=== PATIENT | male | born 1960 | race Caucasian/White ===

== ENCOUNTER 2025-05-12 11:24 | Inpatient (IN) | payer OTHER ==
[~2025-05-12] VITALS: Ht 175.3 cm; Wt 94.2 kg
[2025-05-12] MEDS ORDERED: NS 1,000 ML IV SCH (11:45)
[2025-05-12 12:39] LABS: BASOPHILS ABSOLUTE AUTO 0.06 K/mm3 (0.00-0.23); BASOPHILS PERCENT AUTO 0 % (0-2); EOSINOPHILS ABSOLUTE AUTO 0.35 K/mm3 (0.00-0.68); EOSINOPHILS PERCENT AUTO 2 % (0-6); Hematocrit 42.9 % (37.0-53.0); Hemoglobin 14.0 g/dL (13.5-17.5); IMMATURE GRAN ABSOLUTE AUTO 0.15 K/mm3 (0.00-0.10); IMMATURE GRAN PERCENT AUTO 1 % (0-1); LYMPHOCYTES ABSOLUTE AUTO 1.76 K/mm3 (0.84-5.20); LYMPHOCYTES PERCENT AUTO 9 % (21-46); MONOCYTES ABSOLUTE AUTO 1.70 K/mm3 (0.16-1.47); MONOCYTES PERCENT AUTO 9 % (4-13); Mean Corpuscular HGB Conc 32.6 g/dL (31.5-36.5); Mean Corpuscular Volume 82 fL (80-100); NEUTROPHILS ABSOLUTE AUTO 14.67 K/mm3 (1.96-9.15); NEUTROPHILS PERCENT AUTO 79 % (41-73); NRBC ABSOLUTE 0.00 K/mm3 (0.00-0.02); NRBC Auto 0.0 /100 WBC (0.0-0.2); Platelet Count 521 K/mm3 (150-400); RDW Coefficient Variation 14.0 % (11.7-14.2); RDW Standard Deviation 41.6 fL (35.1-46.3)
[2025-05-12 12:56] LABS: Alanine Aminotransfer (ALT/SGP 66.0 U/L (12-78); Albumin, Blood 2.7 g/dL (3.4-5.0); Albumin/Globulin Ratio 0.6 (0.8-1.8); Anion Gap 9.0 mmol/L (3-11); Aspartate Aminotrans (AST/SGOT 62.0 U/L (12-37); Bilirubin, Total 0.4 mg/dL (0.1-1.0); Blood Urea Nitrogen 74.0 mg/dL (8-24); CO2, Blood 31.0 mmol/L (21-32); Calcium, Blood 8.8 mg/dL (8.5-10.1); Chloride, Blood 98.0 mmol/L (98-108); Creatinine, Blood 1.81 mg/dL (0.60-1.20); Globulin, Blood 4.9 g/dL (2.2-4.0); Glucose, Blood 85.0 mg/dL (70-99); Potassium, Blood 3.0 mmol/L (3.5-5.5); Sodium, Blood 135.0 mmol/L (136-145); Total Protein, Blood 7.6 g/dL (6.4-8.2)
[2025-05-12] MEDS ORDERED: HYDROmorphone HCl/Pf 1MG SYR IV ONE (14:00)
[2025-05-12] MEDS ORDERED: Lidocaine HCl 2% Jelly 120MG/6ML SYR (20MG PER ML) TOP ONE (15:00)
[2025-05-12] MEDS ORDERED: Vancomycin (Pharmacy Consult) IV PRN (15:10)
[2025-05-12] MEDS ORDERED: HYDROmorphone HCl/Pf 1MG SYR IV PRN (15:20)
[2025-05-12] MEDS ORDERED: FLU VACC TS2025-26(6MOS UP)/PF 45 MCG/0.5 ML SYRINGE IM SCH (15:20)
[2025-05-12] MEDS ORDERED: Ondansetron HCl 2 MG / ML 2ML Vial IV PRN (15:20)
[2025-05-12 15:33] LABS: Magnesium, Blood 2.6 mg/dL (1.6-2.4); Phosphorus, Blood 3.8 mg/dL (2.5-4.9)
[2025-05-12] MEDS ORDERED: Vancomycin (Pharmacy Consult) IV SCH (16:05)
[2025-05-12] MEDS ORDERED: Clindamycin 900mg in D5W 50ML 50 ML IV ONE (16:15)
[2025-05-12] MEDS ORDERED: Meropenem 2,000 MG in NS 250 ML IV SCH (17:00)
--- NOTE | 2025-05-12 17:00 | NUR ---
PT ADMITTED TO ROOM 359.
[2025-05-12 18:17] VITALS: BP 163/97
--- NOTE | 2025-05-12 19:51 | NUR ---
SHIFT SUMMARY PT ADMITTED THIS EVENING. PT IS A/OX4. BEDREST AT THIS TIME. WOUND TO R FOOT COVERED WITH MAGGOTS. MULTIPLE SCABS AND EXCORATION COVERING BLE'S, BUE'S, ABD, AND TIERRA AREA. SEE PICTURES IN CHART. LOCOMOTIVE CRANE OPERATOR CONSULT, UNABLE TO REACH AT THIS TIME. PT IS INCONT OF BLADDER R/T URGENCY. ATTENDS IN PLACE AND CHANGED NEEDED. PT ENCOURAGED TO USE URINAL. ON TELE RUNNING SINUS TACH IN THE 100'S. PT IS PLEASANT AND COOPERATIVE WITH CARE.
[2025-05-12] MEDS ORDERED: Sodium Hypochlorite 480 ML BTL (0.25%) TOP ONE (20:00)
[2025-05-12 20:07] VITALS: BP 168/83
[2025-05-12] MEDS ORDERED: NS 250 ML IV PRN (20:20)
[2025-05-12] MEDS ORDERED: Lactobacil 2-S.Thermo-Bifido 1 1 Cap PO SCH (21:00)
[2025-05-13] MEDS ORDERED: Clindamycin 900mg in D5W 50ML 50 ML IV SCH (02:00)
[2025-05-13 04:28] VITALS: BP 186/93
--- NOTE | 2025-05-13 05:27 | NUR ---
PROVIDER NOTIFIED OF PT'S BP OF 181/93. PT NOTED TO NOT TAKE ANY HOME MEDS FOR BLOOD PRESSURE AND NOT IN PAIN. NO ORDERS AT THIS TIME. AUTHOR TOLD TO CALL AGAIN IF SYSTOLIC BLOOD PRESSURE REACHES 190 AT NEXT VS CHECK.
--- NOTE | 2025-05-13 05:51 | NUR ---
SENIOR DATA ARCHITECT SUMMARY PT A&OX4, VSS, EXCEPT FOR HTN. PROVIDER NOTIFIED OF HTN, SEE NOTE FOR DETAILS. ABLE TO COMMUNICATE NEEDS EFFECTIVELY. ALTHOUGH PT IS ABLE TO ANSWER A&O QUESTIONS CORRECTLY, PT IS INTERMITTENTLY CONFUSED AND FORGETFUL. PULLED OUT IV AND WAS ASKING ABOUT WHERE "HORACIO" WAS. UNCLEAR WHO HORACIO IS. AT ONE POINT, PT HAD BACKPACK IN LAP WITH GOWN OFF SITTING IN BED. APPEARED LIKE HE WAS GETTING READY TO LEAVE. REDIRECTABLE. BED ALARM ON FOR SAFETY. PROVIDER NOTIFIED OF MAGGOTS ON R FOOT. AUTHOR INSTRUCTED BY PROVIDER TO MANUALLY SUCTION MAGGOTS OFF FOOT, CLEANSE WITH [employer], AND LEAVE PATHOLOGY LABORATORY AIDE AFTERWARDS. PT STATED GREAT IMPROVEMENT IN R FOOT COMFORT AFTER MAGGOT REMOVAL. OTHERWISE, PT HAS BEEN ASLEEP ON AND OFF THIS SHIFT. CHEST RISE/RESPIRATIONS NOTED. REMAINS ON TELE. SINUS TACH AT 103. REMAINS ON BED REST. RECEIVING CLINDAMYCIN AND MEROPENEM PER EMAR. BED RAILS UP X 2, BED IN LOWEST POSITION, BED WHEELS LOCKED, PERSONAL BELONGINGS AND CALL LIGHT WITHIN REACH FOR SAFETY.
[2025-05-13 05:56] LABS: BASOPHILS ABSOLUTE AUTO 0.03 K/mm3 (0.00-0.23); BASOPHILS PERCENT AUTO 0 % (0-2); EOSINOPHILS ABSOLUTE AUTO 0.23 K/mm3 (0.00-0.68); EOSINOPHILS PERCENT AUTO 1 % (0-6); Hematocrit 36.5 % (37.0-53.0); Hemoglobin 12.1 g/dL (13.5-17.5); IMMATURE GRAN ABSOLUTE AUTO 0.11 K/mm3 (0.00-0.10); IMMATURE GRAN PERCENT AUTO 1 % (0-1); LYMPHOCYTES ABSOLUTE AUTO 1.53 K/mm3 (0.84-5.20); LYMPHOCYTES PERCENT AUTO 9 % (21-46); MONOCYTES ABSOLUTE AUTO 1.82 K/mm3 (0.16-1.47); MONOCYTES PERCENT AUTO 11 % (4-13); Mean Corpuscular HGB Conc 33.2 g/dL (31.5-36.5); Mean Corpuscular Volume 82 fL (80-100); NEUTROPHILS ABSOLUTE AUTO 12.48 K/mm3 (1.96-9.15); NEUTROPHILS PERCENT AUTO 77 % (41-73); NRBC ABSOLUTE 0.00 K/mm3 (0.00-0.02); NRBC Auto 0.0 /100 WBC (0.0-0.2); Platelet Count 401 K/mm3 (150-400); RDW Coefficient Variation 14.2 % (11.7-14.2); RDW Standard Deviation 42.3 fL (35.1-46.3)
[2025-05-13 06:28] LABS: Anion Gap 8.0 mmol/L (3-11); Blood Urea Nitrogen 61.0 mg/dL (8-24); CO2, Blood 27.0 mmol/L (21-32); Calcium, Blood 8.2 mg/dL (8.5-10.1); Chloride, Blood 101.0 mmol/L (98-108); Creatinine, Blood 1.78 mg/dL (0.60-1.20); Glucose, Blood 151.0 mg/dL (70-99); Magnesium, Blood 2.1 mg/dL (1.6-2.4); Potassium, Blood 3.1 mmol/L (3.5-5.5); Sodium, Blood 133.0 mmol/L (136-145)
[2025-05-13] MEDS ORDERED: Insulin Human Lispro 100 Units/ML 3ML Syringe SC SCH (07:30)
[2025-05-13 07:59] VITALS: BP 188/88
[2025-05-13] MEDS ORDERED: Enoxaparin 30 MG/0.3 ML SYR SC SCH (09:00)
[2025-05-13] MEDS ORDERED: Enoxaparin 40 MG/0.4 ML SYR SC SCH (09:00)
[2025-05-13] MEDS ORDERED: Miconazole Nitrate 2% 85 GM PWD TOP SCH (09:00)
[2025-05-13] MEDS ORDERED: Meropenem 2,000 MG in NS 250 ML IV SCH (10:00)
[2025-05-13 14:15] VITALS: BP 151/74
--- NOTE | 2025-05-13 18:28 | NUR ---
SHIFT SUMMARY PATIENT ALERT AND ORIENTED X 4, MAKE NEEDS KNOWN. MEDICATION ADMINISTERED PER EMAR.TOLERATING PO. PATIENT PLEASANT AND COOPERATIVE DURING CARE. INCREASE ACTIVITY TOLERATED PER PROVIDER. CALLED PODIATRY CONSULT THIS MORNING. LE DUPLEX WAS DONE TODAY. BED LOCKED AND IN LOWEST POSITION. CALL LIGHT WITHIN REACH.
[2025-05-13 19:55] VITALS: BP 168/90
[2025-05-13] MEDS ORDERED: Arginine/Glutamine/Calcium Hmb 1 Packet PO SCH (21:00)
[2025-05-14] VITALS (8 sets, daily range): BP systolic 155–196; BP diastolic 74–106
--- NOTE | 2025-05-14 04:08 | NUR ---
SHIFT SUMMARY PT ALERT ORIENTED X 4 WITH CONFUSION ABLE TO VERBALIZE NEEDS REMAINS ON BEDREST. INC OF URINE THIS SHIFT. REMAINS WITH EXCORIATION TO PERINEUM. ZINC AND DESENEX WERE APPLIED TO AREAS. KEPT CLEAN DRY AND REPOSITIONED Q2HR. C/O BACK PAIN MEDICATED WITH OXYAND TYLENOL WITH GOOD PAIN RELIEF. REMAINS ON VANCO AND MEROPENEM FOR SEVERE SEPSIS TO HIS INFECTED DIABETIC RT FOOT ULCER. AREA REMAINS WITH DRESSING THAT IS CHANGED QDAY. HIS BP IS ELEVATED IN THE 160'S AND 180'S. FS DONE AC AND HS WAS 183. REMAINS ON TELEMETRY AT [facility] AT 94. RESTING IN BED AT THIS TIME WITH CALL LIGHT IN REACH
[2025-05-14 04:30] LABS: BASOPHILS ABSOLUTE AUTO 0.07 K/mm3 (0.00-0.23); BASOPHILS PERCENT AUTO 0 % (0-2); EOSINOPHILS ABSOLUTE AUTO 0.32 K/mm3 (0.00-0.68); EOSINOPHILS PERCENT AUTO 2 % (0-6); Hematocrit 35.6 % (37.0-53.0); Hemoglobin 11.5 g/dL (13.5-17.5); IMMATURE GRAN ABSOLUTE AUTO 0.14 K/mm3 (0.00-0.10); IMMATURE GRAN PERCENT AUTO 1 % (0-1); LYMPHOCYTES ABSOLUTE AUTO 2.07 K/mm3 (0.84-5.20); LYMPHOCYTES PERCENT AUTO 12 % (21-46); MONOCYTES ABSOLUTE AUTO 1.92 K/mm3 (0.16-1.47); MONOCYTES PERCENT AUTO 11 % (4-13); Mean Corpuscular HGB Conc 32.3 g/dL (31.5-36.5); Mean Corpuscular Volume 82 fL (80-100); NEUTROPHILS ABSOLUTE AUTO 12.96 K/mm3 (1.96-9.15); NEUTROPHILS PERCENT AUTO 74 % (41-73); NRBC ABSOLUTE 0.00 K/mm3 (0.00-0.02); NRBC Auto 0.0 /100 WBC (0.0-0.2); Platelet Count 355 K/mm3 (150-400); RDW Coefficient Variation 14.3 % (11.7-14.2); RDW Standard Deviation 42.7 fL (35.1-46.3)
[2025-05-14 04:46] LABS: Albumin, Blood 1.9 g/dL (3.4-5.0); Anion Gap 12 mmol/L (3-11); Blood Urea Nitrogen 50 mg/dL (8-24); CO2, Blood 25 mmol/L (21-32); Calcium, Blood 8.3 mg/dL (8.5-10.1); Chloride, Blood 104 mmol/L (98-108); Creatinine, Blood 2.00 mg/dL (0.60-1.20); Glucose, Blood 123 mg/dL (70-99); Phosphorus, Blood 2.8 mg/dL (2.5-4.9); Potassium, Blood 3.8 mmol/L (3.5-5.5); Sodium, Blood 137 mmol/L (136-145)
[2025-05-14] MEDS ORDERED: Meropenem 2,000 MG in NS 250 ML IV SCH (09:00)
[2025-05-14 11:27] LABS: Vancomycin, Trough 15.4 ug/mL (5.0-10.0)
[2025-05-14] MEDS ORDERED: NS 1,000 ML IV SCH (14:50)
--- NOTE | 2025-05-14 15:24 | NUR ---
SUMMARY- PT A/O X3-4, USES CALL LIGHT.MILD CONFUSION AT TIMES; PULLED OFF TELE LEADS MULT TIMES THIS SHIFT. FEEDS SELF MEALS WITH SET UP. TOLERATING FOOD AND FLUIDS. PT IS CONTINENT ON OCCASION AND MOSTLY INCONT RELATED TO URGENCY. BLE HAVE WOUNDS, RLE MOIST WOUNDS DIALY DRESSING CHANGED 1400- SCD'S IN USE. BLOOD SUGARS AC/HS, COVERED WITH SSI. ATTEMPTED TO GET PT OOB TO CHAIR. PT WAS UNABLE TO STAND WITH 2 PERSON ASSIST/GAIT BELT. SAT AT EDGE OF BED FOR 5 MIN, BALANCED SELF HALF THE TIME. PT/OT ORDERED, PT DECLINED TO WORK WITH OT SAID FOR THEM TO COME BACK TOMORROW. PT TURNED ROUTINELY IN BED. WOUNDS ON PENIS AND SCROTUM WITH YELLOW ESCHAR, VERY PAINFUL. NEW ORDER FOR ABX OINT TO BE PLACED TO AREA WITH EACH ATTENDS CHANGE. ZINC CREAM TO OTHER EXCORIATION,AND MICONOZOLE TO RED INTACT SKIN. PT HAS HX BLE NEUROPATHY BUT STATES LEGS VERY PAINFUL TO TOUCH. MEDICATED WITH DILAUDID 1MG BEFORE DRESSING CHANGE AND OXYCODONE 5MG X2 THIS SHIFT. STATES PAIN MED GIVES HIM ADQ PAIN CONTROL.
[2025-05-14] MEDS ORDERED: Insulin Glargine 100 Unit/ML 3 ML SYR SC SCH (21:00)
[2025-05-15 00:54] VITALS: BP 192/99
[2025-05-15 03:38] VITALS: BP 187/87
--- NOTE | 2025-05-15 04:39 | NUR ---
SHIFT SUMMARY PT ALERT ORIENTED WITH SOME CONFUSION. HE HAS BEEN VERY RESTLESS THIS SHIFT CONTINUING TO REMOVE HIS TELEMETRY SEVERAL TIMES AND TAKING OUT HIS IV. HE CONTINUES TO BE INCONTINENT AND REQUIRES TO BE CHANGED SEVERAL TIMES DUE TO HIS INCONTINENCE. REMAINS ON MEROPENEM q12HR AND VANCO QDAY. REMAINS ON CONTACT ISOLATION R/T MRSA. HIS RT FOOT REMAINS WITH DRESSINGS THAT ARE CDI. HE HAD A TEMP OF 99.9 AND TYLENOL WAS GIVEN. HE BP REMAINS HIGH AT 188/83 AND 192/99. REMAINS ON BP MEDS ORDERED. HIS LT ARM REMAINS SWOLLEN. HE STATED THAT ITS BEEN LIKE THIS FOR A LONG TIME R/T BURSITIS. MD TO LOOK AT AREA TODAY. REMAINS ON TELEMETRY AT AT 115. HE HAS BLE ULCERATIONS, ABRASION TO NOSE, AND EXCORIATIONS TO PERINEUM. PT RESTING IN BED AT THIS TIME WITH CALL LIGHT IN REACH
[2025-05-15 04:51] LABS: Hematocrit 34.9 % (37.0-53.0); Hemoglobin 11.6 g/dL (13.5-17.5); Mean Corpuscular HGB Conc 33.2 g/dL (31.5-36.5); Mean Corpuscular Volume 82 fL (80-100); NRBC ABSOLUTE 0.00 K/mm3 (0.00-0.02); NRBC Auto 0.0 /100 WBC (0.0-0.2); Platelet Count 328 K/mm3 (150-400); RDW Coefficient Variation 14.5 % (11.7-14.2); RDW Standard Deviation 43.0 fL (35.1-46.3)
[2025-05-15 05:14] LABS: Anion Gap 10.0 mmol/L (3-11); Blood Urea Nitrogen 42.0 mg/dL (8-24); CO2, Blood 26.0 mmol/L (21-32); Calcium, Blood 8.4 mg/dL (8.5-10.1); Chloride, Blood 105.0 mmol/L (98-108); Creatinine, Blood 1.7 mg/dL (0.60-1.20); Glucose, Blood 122.0 mg/dL (70-99); Potassium, Blood 3.9 mmol/L (3.5-5.5); Sodium, Blood 137.0 mmol/L (136-145)
[2025-05-15 08:05] VITALS: BP 158/94
[2025-05-15] MEDS ORDERED: Meropenem 2,000 MG in NS 250 ML IV SCH (08:30)
[2025-05-15 14:42] VITALS: BP 162/97
--- NOTE | 2025-05-15 18:38 | NUR ---
PT A/OX4. PLEASANT AND COOPERATIVE WITH CARE TODAY. PT ON BEDREST, CONTINUES TO BE INCONTINENT. DOES NOT USE CALL LIGHT APPROPRIATELY. PT HAS BEEN SLEEPING MOST OF SHIFT, EASILY WOKEN WITH VERBAL STIMULI FOR CARE TASKS. PLAN IS TO DC TO SNF. CONT IV VANCO AND MEROPENEM. NO ACUTE NEEDS AT THIS TIME.
[2025-05-15 19:38] VITALS: BP 154/89
[2025-05-16] VITALS (7 sets, daily range): BP systolic 149–198; BP diastolic 75–99
--- NOTE | 2025-05-16 04:29 | NUR ---
SHIFT SUMMARY PT ALERT ORIENTED WITH CONFUSION. ABLE TO VERBALIZE NEEDS BUT REMAINS VERY RESTLESS AND PULLS AT HIS CLOTHES AND HIS IV. REMAINS ON VANCO AND MERROPENUM ORDERED FOR INFECTION TO RT FOOT. I REDID THE DRESSING ON HIS RT FOOT LAST NIGHT. REMAINS ON CONTACT ISOLATION FOR MRSA TO WOUNDS. HES WBAT TO HIS LOWER EXTREMITIES BUT REMAINS VERY WEAK AND CONTINUES ON PT BUT REFUSES TO PARTICIPATE. HE HAS ABRASION TO HIS NOSE AND EXCORIATION TO HIS GROIN AND COCCYX. C/O PAIN MEDICATED WITH TYLENOL WITH GOOD RELIEF. FS DONE AC AND HS WAS 115. RESTING IN BED AT THIS TIME WITH CALL LIGHT IN REACH AND BED ALARM ON.
[2025-05-16 09:37] LABS: BASOPHILS ABSOLUTE AUTO 0.05 K/mm3 (0.00-0.23); BASOPHILS PERCENT AUTO 0 % (0-2); EOSINOPHILS ABSOLUTE AUTO 0.34 K/mm3 (0.00-0.68); EOSINOPHILS PERCENT AUTO 2 % (0-6); Hematocrit 33.2 % (37.0-53.0); Hemoglobin 10.8 g/dL (13.5-17.5); IMMATURE GRAN ABSOLUTE AUTO 0.14 K/mm3 (0.00-0.10); IMMATURE GRAN PERCENT AUTO 1 % (0-1); LYMPHOCYTES ABSOLUTE AUTO 0.91 K/mm3 (0.84-5.20); LYMPHOCYTES PERCENT AUTO 6 % (21-46); MONOCYTES ABSOLUTE AUTO 1.69 K/mm3 (0.16-1.47); MONOCYTES PERCENT AUTO 12 % (4-13); Mean Corpuscular HGB Conc 32.5 g/dL (31.5-36.5); Mean Corpuscular Volume 82 fL (80-100); NEUTROPHILS ABSOLUTE AUTO 11.51 K/mm3 (1.96-9.15); NEUTROPHILS PERCENT AUTO 79 % (41-73); NRBC ABSOLUTE 0.00 K/mm3 (0.00-0.02); NRBC Auto 0.0 /100 WBC (0.0-0.2); Platelet Count 379 K/mm3 (150-400); RDW Coefficient Variation 14.1 % (11.7-14.2); RDW Standard Deviation 41.8 fL (35.1-46.3)
[2025-05-16 09:51] LABS: Anion Gap 8.0 mmol/L (3-11); Blood Urea Nitrogen 47.0 mg/dL (8-24); CO2, Blood 27.0 mmol/L (21-32); Calcium, Blood 8.4 mg/dL (8.5-10.1); Chloride, Blood 102.0 mmol/L (98-108); Creatinine, Blood 1.54 mg/dL (0.60-1.20); Glucose, Blood 193.0 mg/dL (70-99); Potassium, Blood 4.3 mmol/L (3.5-5.5); Sodium, Blood 133.0 mmol/L (136-145)
--- NOTE | 2025-05-16 19:09 | NUR ---
SHIFT SUMMARY PT IS A/OX4. UP TO CHAIR WITH 1 PERSON ASSIST WITH FWW. NO ACUTE CHANGES THROUGHOUT THIS SHIFT. PT IS INCONT OF BLADDER R/T URGENCY. ATTENDS IN PLACE, PT ENCOURAGE TO USE URINAL. CONTINUING IV ANTIBIOTICS. PT IS COOPERATIVE WITH CARE.
[2025-05-17 04:29] VITALS: BP 176/82
[2025-05-17 07:42] VITALS: BP 199/100
[2025-05-17 11:40] LABS: Creatinine, Blood 1.55 mg/dL (0.60-1.20); Vancomycin, Trough 13.6 ug/mL (5.0-10.0)
[2025-05-17 12:07] LABS: Stool Occult Blood Guaiac 1 Pos (Neg)
--- NOTE | 2025-05-17 15:58 | NUR ---
SHIFT SUMMARY NO ACUTE CHANGES, A/Ox3, ABLE TO MAKE NEEDS KNOWN AND USES CALL SYSTEM APPROPRIATELY. PT REFUSED OT AND TO GET OOB TODAY. SLEEPING MAJORITY OF SHIFT BESDIES MEAL TIMES AND PERSONAL CARE. GOOD APPETITE. CBG AC/HS AND INSULIN PER SLIDING SCALE. ABX ADMINISTERED PER ORDERS. WOUND DRESSINGS REMAIN C/D/I. MULTIPLE LOOSE BLACK BM - PROVIDER AWARE AND LAB RESULTS PENDING. PT COOPERATIVE WITH CARE AND APPRECIATIVE OF STAFF. INCONTINENT OF B&B. PT CURRENTLY SLEEPING IN BED ON LEFT SIDE. BED IN LOWEST POSITION AND CALL LIGHT IN REACH.
[2025-05-17 17:00] VITALS: BP 148/69
[2025-05-17 18:56] LABS: Hematocrit 24.6 % (37.0-53.0); Hemoglobin 7.9 g/dL (13.5-17.5)
[2025-05-17] MEDS ORDERED: Banana Flakes/Tos 1 EA Powder Pack PO SCH (19:00)
--- NOTE | 2025-05-17 19:16 | NUR ---
ASSUMPTION OF CARE: THIS RN ASSUMED CARE OF PATIENT. AWAKE DURING SHIFT CHANGE REPORT. LYING IN BED ON LEFT SIDE FACING WINDOW. BREATHING EVEN AND UNLABORED c RA. SALINE LOCKED RAC. REQUESTING ROOT BEER FLOAT; STATED WE COULD CONSIDER ONCE BLOOD SUGARS CHECKED. BED IN LOWEST POSITION. CALL LIGHT WITHIN REACH. ACUTE NEEDS MET.
[2025-05-17 20:28] VITALS: BP 151/76
[2025-05-18] VITALS (7 sets, daily range): BP systolic 135–162; BP diastolic 66–87
[2025-05-18 04:41] LABS: BASOPHILS ABSOLUTE AUTO 0.05 K/mm3 (0.00-0.23); BASOPHILS PERCENT AUTO 1 % (0-2); EOSINOPHILS ABSOLUTE AUTO 0.46 K/mm3 (0.00-0.68); EOSINOPHILS PERCENT AUTO 5 % (0-6); Hematocrit 19.5 % (37.0-53.0); Hemoglobin 6.3 g/dL (13.5-17.5); IMMATURE GRAN ABSOLUTE AUTO 0.13 K/mm3 (0.00-0.10); IMMATURE GRAN PERCENT AUTO 1 % (0-1); LYMPHOCYTES ABSOLUTE AUTO 1.55 K/mm3 (0.84-5.20); LYMPHOCYTES PERCENT AUTO 15 % (21-46); MONOCYTES ABSOLUTE AUTO 1.48 K/mm3 (0.16-1.47); MONOCYTES PERCENT AUTO 15 % (4-13); Mean Corpuscular HGB Conc 32.3 g/dL (31.5-36.5); Mean Corpuscular Volume 84 fL (80-100); NEUTROPHILS ABSOLUTE AUTO 6.43 K/mm3 (1.96-9.15); NEUTROPHILS PERCENT AUTO 64 % (41-73); NRBC ABSOLUTE 0.00 K/mm3 (0.00-0.02); NRBC Auto 0.0 /100 WBC (0.0-0.2); Platelet Count 306 K/mm3 (150-400); RDW Coefficient Variation 14.4 % (11.7-14.2); RDW Standard Deviation 44.1 fL (35.1-46.3)
[2025-05-18 06:01] LABS: Anion Gap 7.0 mmol/L (3-11); Blood Urea Nitrogen 73.0 mg/dL (8-24); CO2, Blood 27.0 mmol/L (21-32); Calcium, Blood 7.9 mg/dL (8.5-10.1); Chloride, Blood 109.0 mmol/L (98-108); Creatinine, Blood 1.47 mg/dL (0.60-1.20); Glucose, Blood 152.0 mg/dL (70-99); Potassium, Blood 4.8 mmol/L (3.5-5.5); Sodium, Blood 138.0 mmol/L (136-145)
--- NOTE | 2025-05-18 06:54 | NUR ---
END OF SHIFT SUMMARY: A&Ox3-4. COOPERATIVE c MOST CARE BUT CANTANKEROUS c CERTAIN MEMBERS OF STAFF, GOING FAR TO INTENTIALLY URINATE ON A STAFF MEMBER LAST NIGHT. EDUCATION PROVIDED. DOES NOT UTILIZE CALL LIGHT, BUT YELLS INTO HALLWAY. WEAK VS UNMOTIVATED TO PARTICIPATE IN CARE. MEDS WHOLE c FLUIDS. SL RAC. CONTINENT/INCONTINENT; MULTIPLE LOOSE DARK, TARRY STOOLS THIS SHIFT. HGB NOTED TO BE <7; ORDERS FOR 1u PRBC. PROVIDER NOTIFIED OF NEED FOR CONSENT FOR BLOOD, DEFERRING TO DAY SHIFT PROVIDER SINCE PT SLEEPING. ISO REMOVED D/T CULTURES BEING METHICILLIN SUSCEPTIBLE. BED IN LOWEST POSITION, CALL LIGHT WITHIN REACH, ALL NEEDS MET. REPORT TO ONCOMING NURSE.
--- NOTE | 2025-05-18 07:26 | NUR ---
CONTACTED ABOUT BLOOD CONSENT FORM NEEDING SIGNATURES.
[2025-05-18] MEDS ORDERED: NS 500 ML IV SCH (08:15)
[2025-05-18] MEDS ORDERED: Pantoprazole Sodium 40 MG Injection IV SCH (13:00)
[2025-05-18 13:06] LABS: Ferritin, Serum 476.0 ng/mL (26-388); Total Iron Binding Capacity 157.0 ug/dL (250-450)
[2025-05-18 17:35] LABS: Hematocrit 23.2 % (37.0-53.0); Hemoglobin 7.8 g/dL (13.5-17.5)
--- NOTE | 2025-05-18 17:37 | NUR ---
SHIFT SUMMARY PT AOX3-4, COOPERATIVE, KIND OF ABLE TO MAKE NEEDS KNOWN. PT ON ISO FOR POSSIBLE MRSA OF WOUND. ON ROOM AIR, NO TELE. CURRENLTY NPO IN PREPARATION OF PROCEDURE TOMORROW. TRANSFUSED 2UNITS OF PRBC THIS SHIFT, TOLERATED ALL MEDICAITON WELL. PER MD, ORDER Q6H H&H, AND CBG Q6, DID LEAVE VOICEMAIL WITH MD ABOUT LANTUS INSULIN. PT DOES HAVE URGENCY WITH BOTH URINE AND BOWEL. MULTIPLE BMS THAT ARE BLACK AND KIND OF TARRY. PT REPORTS NOT BEING ABLE TO USE URINAL APPROPRIATELY, PERFORMING Q2 HOUR BREIF CHANGES OR NEEDED. BED IN LOWEST POSITION, CALL LIGHT WITHIN REACH.
[2025-05-18] MEDS ORDERED: Insulin Human Lispro 100 Units/ML 3ML Syringe SC SCH (18:00)
[2025-05-18 23:37] LABS: Hematocrit 23.9 % (37.0-53.0); Hemoglobin 7.8 g/dL (13.5-17.5)
--- NOTE | 2025-05-19 04:29 | NUR ---
SHIFT SUMMARY PATIENT HAD NO ACUTE CHANGES. ALERT, ORIENTED AND BEDREST. NPO FOR PROCEDURE. DENIES CHEST PAIN, SOB, AND N/V. VSS/AFEBRILE. PIV INTACT. IV ABX INFUSED. CBG 100. INCONTINENT. WOUND DRESSINGS INTACT. SLEPT MOST OF THE SHIFT. CALL LIGHT IN REACH. BED IN LOWEST POSITION. WILL CONTINUE TO MONITOR UNTIL DAY SHIFT NURSE ASSUMES CARE.
[2025-05-19 05:00] LABS: Hematocrit 23.4 % (37.0-53.0); Hemoglobin 7.6 g/dL (13.5-17.5); Mean Corpuscular HGB Conc 32.5 g/dL (31.5-36.5); Mean Corpuscular Volume 83 fL (80-100); NRBC ABSOLUTE 0.03 K/mm3 (0.00-0.02); NRBC Auto 0.2 /100 WBC (0.0-0.2); Platelet Count 316 K/mm3 (150-400); RDW Coefficient Variation 14.7 % (11.7-14.2); RDW Standard Deviation 44.6 fL (35.1-46.3)
[2025-05-19 05:27] LABS: Anion Gap 6.0 mmol/L (3-11); Blood Urea Nitrogen 50.0 mg/dL (8-24); CO2, Blood 27.0 mmol/L (21-32); Calcium, Blood 8.1 mg/dL (8.5-10.1); Chloride, Blood 110.0 mmol/L (98-108); Creatinine, Blood 1.44 mg/dL (0.60-1.20); Glucose, Blood 125.0 mg/dL (70-99); Potassium, Blood 4.4 mmol/L (3.5-5.5); Sodium, Blood 139.0 mmol/L (136-145)
[2025-05-19 05:52] VITALS: BP 144/73
[2025-05-19 07:33] VITALS: BP 130/67
[2025-05-19] MEDS ORDERED: Sod Ferric Gluc Complx/Sucrose 125 MG in NS 100 ML IV SCH (13:00)
[2025-05-19 14:14] VITALS: BP 145/74
--- NOTE | 2025-05-19 14:17 | NUR ---
RFA #20 PIV SITE CLEAR/FLUSHES WELL.
--- NOTE | 2025-05-19 14:19 | NUR ---
INTO [facility] VIA [facility]. HISTORY AND ALLERGIES REVIEWED. LUNGS CLEAR/NO NOTED SOB. NPO STATUS CONFIRMED.
--- NOTE | 2025-05-19 14:29 | NUR ---
05/19/25 1429 Shawna Moser CONFIRMED AND REVIEWED H&P, MEDCICATIONS, ALLERGIES, MEDICAL HISTORY, RESPIRATORY HISTORY, VITAL SIGNS, 3-LEAD EKG, CONSENTS, AND PHYSICIAN ORDERS. PATIENT CONFIRMS NPO STATUS AND AGREES WITH SCHEDULED PROCEDURE. MONITOR INTACT WITH CONTINUOUS PULSE OXIMETRY, CAPNOGRAPHY, 3-LEAD EKG, INTERMITTENT BP. SUPPLEMENTAL O2 TO BE TITRATED THROUGHOUT PROCEDURE TO MAINTAIN O2 SATURATION ABOVE 90%. PATIENT DETERMINED TO BE ASA APPROPRIATE FOR MAC. DR. BROWN PROVIDING ANESTHESIA-SEE ANESTHESIA RECORD.
[2025-05-19 16:30] LABS: Hematocrit 24.0 % (37.0-53.0); Hemoglobin 7.7 g/dL (13.5-17.5)
--- NOTE | 2025-05-19 17:54 | NUR ---
SHIFT SUMMARY; PT A/OX3-4 AND 1 PERSON ASSIST TO BEDSIDE COMMODE. PT NPO THIS MORNING FOR ENDOSCOPY. PT MEDICATED PER EMAR. PT LEFT FOR PROCEDURE AT APPROX 1400. NO FINDINGS SEEN DURING PROCEDURE, SEE PROCEDURE NOTE. PER DR. DIOR, PT SWITCHED TO CLEAR LIQUID DIET. PT TOLERATING DIET WELL. LABS REDRAWN THIS AFTERNOON. H/H CONTINUES TO BE LOW, HOWEVER SLIGHTLY IMPROVED FROM THIS MORNING. SEE 1600 LABS. WOUND DRESSINGS REMOVED AND REAPPLIED TO BLE PER ORDER. VSS. BED IN LOW POSITION AND CALL LIGHT WITHIN REACH.
--- NOTE | 2025-05-19 18:06 | NUR ---
THIS CARPET BINDER HAS REVIEWED AND AGREES WITH ALL NOTES AND ASSESSMENTS BY WILMAN DENNISON.
[2025-05-19 20:00] VITALS: BP 144/61
--- NOTE | 2025-05-20 04:21 | NUR ---
SHIFT SUMMARY PATIENT HAD NO ACUTE CHANGES. ALERT ORIENTED AND BEDREST. DENIES CHEST PAIN, SOB, AND N/V. VSS/AFEBRILE. DRESSING TO BLE C/D/I. PIV INTACT. IV ABX INFUSED. CBG 96. SLEPT MOST OF THE SHIFT. CALL LIGHT IN REACH. BED IN LOWEST POSITION AND ALARM ON. WILL CONTINUE TO MONITOR UNTIL DAY SHIFT NURSE ASSUMES CARE.
[2025-05-20 04:41] VITALS: BP 145/80
[2025-05-20 07:16] LABS: Hematocrit 24.1 % (37.0-53.0); Hemoglobin 7.7 g/dL (13.5-17.5); Mean Corpuscular HGB Conc 32.0 g/dL (31.5-36.5); Mean Corpuscular Volume 85 fL (80-100); NRBC ABSOLUTE 0.02 K/mm3 (0.00-0.02); NRBC Auto 0.1 /100 WBC (0.0-0.2); Platelet Count 400 K/mm3 (150-400); RDW Coefficient Variation 15.2 % (11.7-14.2); RDW Standard Deviation 46.5 fL (35.1-46.3)
[2025-05-20] MEDS ORDERED: Insulin Human Lispro 100 Units/ML 3ML Syringe SC SCH (07:30)
[2025-05-20 07:31] VITALS: BP 147/70
[2025-05-20 07:32] LABS: Anion Gap 7.0 mmol/L (3-11); Blood Urea Nitrogen 34.0 mg/dL (8-24); CO2, Blood 27.0 mmol/L (21-32); Calcium, Blood 8.2 mg/dL (8.5-10.1); Chloride, Blood 109.0 mmol/L (98-108); Creatinine, Blood 1.58 mg/dL (0.60-1.20); Glucose, Blood 124.0 mg/dL (70-99); Potassium, Blood 4.3 mmol/L (3.5-5.5); Sodium, Blood 139.0 mmol/L (136-145)
[2025-05-20 15:42] VITALS: BP 130/71
--- NOTE | 2025-05-20 18:01 | NUR ---
THIS OPTICAL MECHANIC APPRENTICE HAS REVIEWED AND AGREES TO ALL NOTES AND ASSESSMENTS BY WILMAN DENNISON.
--- NOTE | 2025-05-20 18:16 | NUR ---
SHIFT SUMMARY; PT A/OX3 (SELF, PERSON, SITUATION) AND SBA TO THE BATHROOM. NEW IV INSERTED ORINGINAL UPPER R ARM IV WAS NO LONGER PATENT. PT MEDICATED PER EMAR. WOUND DRESSINGS CHANGED ON BLE. WOUNDS LOOK TO BE IMPROVING. PT EXPRESSED SLIGHT DISCOMFORT DURING DRESSING CHANGE. BLACK TARRY STOOL RESIDUAL SEEN ON BUTTOCK DURING BEDBATH. VSS. CALL LIGHT WITHIN REACH AND BED IN LOW POSITION.
[2025-05-20 20:41] VITALS: BP 138/98
[2025-05-21 05:51] LABS: BASOPHILS ABSOLUTE AUTO 0.06 K/mm3 (0.00-0.23); BASOPHILS PERCENT AUTO 1 % (0-2); EOSINOPHILS ABSOLUTE AUTO 0.73 K/mm3 (0.00-0.68); EOSINOPHILS PERCENT AUTO 6 % (0-6); Hematocrit 24.0 % (37.0-53.0); Hemoglobin 7.5 g/dL (13.5-17.5); IMMATURE GRAN ABSOLUTE AUTO 0.15 K/mm3 (0.00-0.10); IMMATURE GRAN PERCENT AUTO 1 % (0-1); LYMPHOCYTES ABSOLUTE AUTO 2.32 K/mm3 (0.84-5.20); LYMPHOCYTES PERCENT AUTO 19 % (21-46); MONOCYTES ABSOLUTE AUTO 1.22 K/mm3 (0.16-1.47); MONOCYTES PERCENT AUTO 10 % (4-13); Mean Corpuscular HGB Conc 31.3 g/dL (31.5-36.5); Mean Corpuscular Volume 87 fL (80-100); NEUTROPHILS ABSOLUTE AUTO 7.75 K/mm3 (1.96-9.15); NEUTROPHILS PERCENT AUTO 63 % (41-73); NRBC ABSOLUTE 0.02 K/mm3 (0.00-0.02); NRBC Auto 0.2 /100 WBC (0.0-0.2); Platelet Count 398 K/mm3 (150-400); RDW Coefficient Variation 15.5 % (11.7-14.2); RDW Standard Deviation 47.3 fL (35.1-46.3)
--- NOTE | 2025-05-21 06:32 | NUR ---
SUMMARY: PT A/OX3 BUT IS FORGETFULL AT TIMES W/INTERMITTENT IMPULSIVITY. DX'S ARE INTACT TO BILAT FEET AFTER HAVING BEEN REPLACED THIS SHIFT UPON PT REMOVING THEM. HEMOSANGUINOUS DRAINAGE OBSERVED AND CELLULITIS PERSISTS. IV ABX RECEIVED PER EMAR THE SL'D. HIS L.ELBOW CONT'S RED, SWOLLEN AND WARM W/WEAPING YELLOW DRAINAGE AND DX WAS APPLIED THIS SHIFT. CLEAR LIQ DIET IS IN PLACE FOR POSSIBLE COLONSCOPY THOUGH NO BM WAS OBERVED TONIGHT. HE HAD X1 SMEAR OF DARK STOOL NOTED TO SHEETS W/LINEN AND ATTENDS CHANGED PRN FOR URINE INCONTINENCE. CREAM AND MEDICATED POWDER APPLIED TO REDDENED BUTTOCKS AND TIERRA AREA W/SCATTERED SCABS OBSERVED. NO ACUTE CHANGES, VSS/AFEBRILE. WILL REPORT TO DAY RN.
[2025-05-21 06:33] LABS: Anion Gap 7.0 mmol/L (3-11); Blood Urea Nitrogen 24.0 mg/dL (8-24); CO2, Blood 27.0 mmol/L (21-32); Calcium, Blood 8.0 mg/dL (8.5-10.1); Chloride, Blood 109.0 mmol/L (98-108); Creatinine, Blood 1.4 mg/dL (0.60-1.20); Glucose, Blood 103.0 mg/dL (70-99); Potassium, Blood 4.0 mmol/L (3.5-5.5); Sodium, Blood 139.0 mmol/L (136-145)
[2025-05-21 06:44] VITALS: BP 144/76
[2025-05-21 08:29] VITALS: BP 135/66
--- NOTE | 2025-05-21 18:54 | NUR ---
SUMMARY PT INITIALLY REFUSED VITALS THIS AM WITH ASSISTANT PLANT CONTROL OPERATOR, WAS UPSET ABOUT HIS DIET. WENT INTO ROOM AND TALKED WITH PT GOT VITALS AND FOLLOWED UP WITH DR. GR WITH ROUNDS ON DIET/PLAN. IV ANTIBIOTICS LATE DUE TO PT INTIALLY REFUSING. PT ANWERS MOST OF ORIENTATION QUESTIONS CORECTLY HOWEVER RESPONDS WITH "I DONT KNOW" TO WHERE HE WAS LIVING PRIOR AND TO MY QUESTION OF IF HE HAD EVER BEEN TO OUR WOUND CARE CLINIC". DR HIGGINBOTHAM WAS REACHED OUT TO BY DR. GR TODAY TO FOLLOW UP ON PLAN OF CARE. KS DR. HIGGINBOTHAM PT WILL RECIEVE BOWEL PREP TOMORROW AND THEN COLONOSCOPY ON TUESDAY IF HE IS STILL HERE. PT HAS BEEN REFUSING TO WORK WITH PHYSICAL THERAPY SO DISPOSITION HARD TO PLACE BY THERAPIST. PT UNHOUSED. STATES [place] [facility] [place] [facility] BUT ALSO STATED HE CAME FROM LIVING OFF THE [place] JUST PRIOR TO COMING TO HOSPITAL. PT IMPULSIVE AND DOES NOT CALL PRIOR TO AMBULATING. PT HAD GOTTEN UP TO GO PEE JUST AFTER HE SENT PHYSICAL THERAP OUT OF ROOM. PT WAS UP WITH NO WALKING DEVICE WHEN HIS BED ALARM WAS GOING OFF. PT SEEMED TO WALK STEADILY AND SAT ON COMMODE. WALKED BACK TO BED WITH MYSELF IN ROOM WITH NO ISSUES. PT USING URINAL AND UP TO BATHROOM. CONTINENT. DIET CHAGNED THIS EVENING TO CONSISTANT CARB DIET. DAILY WOUND CARE COMPLETED TO BILAT FEET AND LEFT ELBOW. ACHS BUT NO COVERAGE REQUIRED TODAY.
--- NOTE | 2025-05-21 19:03 | NUR ---
I HAD A NOTE GIVEN TO ME BY REBECCA THAT A KASEY CALLED STATING SHE WAS PT'S NIECE. WHEN I WENT TO VERIFY WITH PT IF SHE WAS NIECE HE STATED NO HE DOES NOT KNOW A KASEY. CALLED NUMBER BACK AND GATHERED SOME INFO, PER KASEY PT'S SIGNIFICANT OTHER Terry LUNANE? HAD REACHED OUT TO THEM TO NOTIFY THEM OF HIS SITUATION THEY HAD LOST CONTACT. PLACED NANY NUMBER ON FRONT OF CHART AND WILL FOLLOW UP WITH PT ON THIS. KASEY VERBALIZED UNDERSTANDING THAT I COULD NOT GIVE HER ANY INFO ON PT AT THIS TIME AND TO MAYBE CALL BACK IN THE AFTERNOON TOMORROW.
[2025-05-21 20:37] VITALS: BP 118/56
[2025-05-22] VITALS (7 sets, daily range): BP systolic 132–160; BP diastolic 66–78
[2025-05-22 04:42] LABS: BASOPHILS ABSOLUTE AUTO 0.03 K/mm3 (0.00-0.23); BASOPHILS PERCENT AUTO 0 % (0-2); EOSINOPHILS ABSOLUTE AUTO 0.62 K/mm3 (0.00-0.68); EOSINOPHILS PERCENT AUTO 6 % (0-6); Hematocrit 22.2 % (37.0-53.0); Hemoglobin 6.8 g/dL (13.5-17.5); IMMATURE GRAN ABSOLUTE AUTO 0.12 K/mm3 (0.00-0.10); IMMATURE GRAN PERCENT AUTO 1 % (0-1); LYMPHOCYTES ABSOLUTE AUTO 2.01 K/mm3 (0.84-5.20); LYMPHOCYTES PERCENT AUTO 20 % (21-46); MONOCYTES ABSOLUTE AUTO 1.08 K/mm3 (0.16-1.47); MONOCYTES PERCENT AUTO 11 % (4-13); Mean Corpuscular HGB Conc 30.6 g/dL (31.5-36.5); Mean Corpuscular Volume 86 fL (80-100); NEUTROPHILS ABSOLUTE AUTO 6.26 K/mm3 (1.96-9.15); NEUTROPHILS PERCENT AUTO 62 % (41-73); NRBC ABSOLUTE 0.00 K/mm3 (0.00-0.02); NRBC Auto 0.0 /100 WBC (0.0-0.2); Platelet Count 365 K/mm3 (150-400); RDW Coefficient Variation 15.5 % (11.7-14.2); RDW Standard Deviation 46.5 fL (35.1-46.3)
[2025-05-22 05:12] LABS: Anion Gap 9.0 mmol/L (3-11); Blood Urea Nitrogen 19.0 mg/dL (8-24); CO2, Blood 25.0 mmol/L (21-32); Calcium, Blood 8.0 mg/dL (8.5-10.1); Chloride, Blood 108.0 mmol/L (98-108); Creatinine, Blood 1.54 mg/dL (0.60-1.20); Glucose, Blood 97.0 mg/dL (70-99); Potassium, Blood 3.8 mmol/L (3.5-5.5); Sodium, Blood 138.0 mmol/L (136-145)
--- NOTE | 2025-05-22 06:11 | NUR ---
SUMMARY: PT A/OX3 BUT IMPULLSIVE AT TIMES AND DOESN'T CALL FOR ASSIST. HE'S SBA OOB W/BED ALARM ON FOR SAFETY. DAILY DX CHANGE TO BILAT FEET COMPLETED BY DAY RN AND REMAIN INTACT. MILD DRAINAGE OBSERVED AND THEY BECOME SLIGHTLY DIRTY FROM AMBULATION. L.ELBOW REMAINS RED/SWOLLEN AND IS KENNETH W/CONT'D YELLOW DRAINAGE. HE'S BEEN CONTINENT/INCONTINENT T/O NOCTE W/LINENS AND ATTENDS CHANGED PRN. DARK COLORED SMEARED STOOL OBSERVED TO SHEETS BUT NO S/S BLOOD OBSERVED. HGB NOW 6.8, HCT 22.2, PAGED AND AWAITING RETURN CALL. PLAN TO COMMENCE BOWEL PREP TODAY THEN HAVE COLONSCOPY THURS. NO ACUTE CHANGES, VSS AND AFEBRILE. WILL REPORT TO DAY RN.
--- NOTE | 2025-05-22 06:45 | NUR ---
MADE AWARE OF HGB/HCT W/1 UNIT PRBC'S RX'D.
--- NOTE | 2025-05-22 17:29 | NUR ---
NOTIFIED DR GR ABOUT NO BOWEL PREP ORDERS FROM GEN SURG YET PLAN IS FOR COLONOSCOPY ON TUESDAY. STATED HE WOULD REACH OUT TO GEN SURG.
[2025-05-22] MEDS ORDERED: Peg/Electrolytes 4,000 ML BTL PO ONE (18:35)
[2025-05-22 22:24] LABS: Hematocrit 25.2 % (37.0-53.0); Hemoglobin 8.1 g/dL (13.5-17.5); Mean Corpuscular HGB Conc 32.1 g/dL (31.5-36.5); Mean Corpuscular Volume 88 fL (80-100); NRBC ABSOLUTE 0.00 K/mm3 (0.00-0.02); NRBC Auto 0.0 /100 WBC (0.0-0.2); Platelet Count 385 K/mm3 (150-400); RDW Coefficient Variation 15.8 % (11.7-14.2); RDW Standard Deviation 48.3 fL (35.1-46.3)
[2025-05-23 05:05] LABS: BASOPHILS ABSOLUTE AUTO 0.04 K/mm3 (0.00-0.23); BASOPHILS PERCENT AUTO 0 % (0-2); EOSINOPHILS ABSOLUTE AUTO 0.62 K/mm3 (0.00-0.68); EOSINOPHILS PERCENT AUTO 7 % (0-6); Hematocrit 25.5 % (37.0-53.0); Hemoglobin 8.1 g/dL (13.5-17.5); IMMATURE GRAN ABSOLUTE AUTO 0.11 K/mm3 (0.00-0.10); IMMATURE GRAN PERCENT AUTO 1 % (0-1); LYMPHOCYTES ABSOLUTE AUTO 2.01 K/mm3 (0.84-5.20); LYMPHOCYTES PERCENT AUTO 21 % (21-46); MONOCYTES ABSOLUTE AUTO 0.92 K/mm3 (0.16-1.47); MONOCYTES PERCENT AUTO 10 % (4-13); Mean Corpuscular HGB Conc 31.8 g/dL (31.5-36.5); Mean Corpuscular Volume 88 fL (80-100); NEUTROPHILS ABSOLUTE AUTO 5.87 K/mm3 (1.96-9.15); NEUTROPHILS PERCENT AUTO 61 % (41-73); NRBC ABSOLUTE 0.00 K/mm3 (0.00-0.02); NRBC Auto 0.0 /100 WBC (0.0-0.2); Platelet Count 409 K/mm3 (150-400); RDW Coefficient Variation 15.8 % (11.7-14.2); RDW Standard Deviation 48.7 fL (35.1-46.3)
[2025-05-23 05:19] VITALS: BP 152/77
--- NOTE | 2025-05-23 05:35 | NUR ---
NOC SHIFT SUMMARY PT EDUCATED EXTENSIVELY ON GOLYTELY PREP BY THIS RN. DESPITE EDUCATION AND ENCOURAGEMENT TO COMPLETE, PT REFUSED. IV ABX INFUSED PER ORDER. HBG IMPROVED FROM YESTERDAY AND WNL AT 8.1. NO OTHER ACUTE CHANGES. CALL LIGHT WITHIN REACH AND BED ALARM ON FOR SAFETY.
[2025-05-23 05:37] LABS: Alanine Aminotransfer (ALT/SGP 33.0 U/L (12-78); Albumin, Blood 1.9 g/dL (3.4-5.0); Albumin/Globulin Ratio 0.4 (0.8-1.8); Anion Gap 8.0 mmol/L (3-11); Aspartate Aminotrans (AST/SGOT 26.0 U/L (12-37); Bilirubin, Total 0.4 mg/dL (0.1-1.0); Blood Urea Nitrogen 19.0 mg/dL (8-24); CO2, Blood 26.0 mmol/L (21-32); Calcium, Blood 7.9 mg/dL (8.5-10.1); Chloride, Blood 109.0 mmol/L (98-108); Creatinine, Blood 1.63 mg/dL (0.60-1.20); Globulin, Blood 4.3 g/dL (2.2-4.0); Glucose, Blood 93.0 mg/dL (70-99); Potassium, Blood 3.8 mmol/L (3.5-5.5); Sodium, Blood 139.0 mmol/L (136-145); Total Protein, Blood 6.2 g/dL (6.4-8.2)
[2025-05-23 07:37] VITALS: BP 146/66
--- NOTE | 2025-05-23 18:34 | NUR ---
SHIFT SUMMARY PATIENT A/OX3, IMPULSIVE, FORGETFUL, DOES NOT CALL FOR ASSISTANCE. BED ALARM AND CHAIR ALARM IN PLACE. PLAN TO HAVE COLONOSCOPY TOMORROW, HOWEVER PATIENT CONTINUES TO REFUSED BOWEL PREP DEPSITE FREQUENT AND CONTINUOUS EDUCATION. PATIENT HAS DRANK APPROX 200ML OF PREP THIS SHIFT. WOUND CARE PROVIDED TO CELLULITIS BLE AND LEFT ELBOW. BARRIER CREAM APPLIED TO PERINEAL AREA PER ORDERS. PATIENT INCONTINENT AND CONTIENENT OF BOWEL AND BLADDER. CURRENTLY NPO FOR SCOPE PROCEDURE TOMORROW. NO OTHER CONCERNS AT THIS TIME, WILL CONTINUE TO MONITOR.
[2025-05-23 19:59] VITALS: BP 158/89
[2025-05-24 04:42] LABS: BASOPHILS ABSOLUTE AUTO 0.04 K/mm3 (0.00-0.23); BASOPHILS PERCENT AUTO 0 % (0-2); EOSINOPHILS ABSOLUTE AUTO 0.53 K/mm3 (0.00-0.68); EOSINOPHILS PERCENT AUTO 6 % (0-6); Hematocrit 26.8 % (37.0-53.0); Hemoglobin 8.6 g/dL (13.5-17.5); IMMATURE GRAN ABSOLUTE AUTO 0.09 K/mm3 (0.00-0.10); IMMATURE GRAN PERCENT AUTO 1 % (0-1); LYMPHOCYTES ABSOLUTE AUTO 1.78 K/mm3 (0.84-5.20); LYMPHOCYTES PERCENT AUTO 20 % (21-46); MONOCYTES ABSOLUTE AUTO 0.98 K/mm3 (0.16-1.47); MONOCYTES PERCENT AUTO 11 % (4-13); Mean Corpuscular HGB Conc 32.1 g/dL (31.5-36.5); Mean Corpuscular Volume 86 fL (80-100); NEUTROPHILS ABSOLUTE AUTO 5.48 K/mm3 (1.96-9.15); NEUTROPHILS PERCENT AUTO 62 % (41-73); NRBC ABSOLUTE 0.00 K/mm3 (0.00-0.02); NRBC Auto 0.0 /100 WBC (0.0-0.2); Platelet Count 411 K/mm3 (150-400); RDW Coefficient Variation 15.9 % (11.7-14.2); RDW Standard Deviation 48.8 fL (35.1-46.3)
--- NOTE | 2025-05-24 05:00 | NUR ---
SHIFT SUMMARY ADMITTED FOR BLE CELLULITIS/SEPSIS. DNR CODE. IV ANTIB RX ARE SCHEDULED. PODIATRY CONSULT IS DR. TOVAR. SURGICAL/GI CONSULT IS DR. HIGGINBOTHAM. ON RA. A&O X3? FORGETFUL AND IMPULSIVE. HE IS STILL REFUSING GO-LYTELY. PLAN WAS FOR A COLONOSCOPY IF BOWEL PREP WERE COMPLETED. PT IS NPO. ACHS, LOW SS. ON RA. CONTINENT/INCONTINENT OF BOTH URINE AND BM. SURGICAL INTERVENTION FOR BLE FOOT WOUNDS IS NOT PLANNED AT THIS TIME.
[2025-05-24 05:01] VITALS: BP 142/69
[2025-05-24 05:12] LABS: Alanine Aminotransfer (ALT/SGP 32.0 U/L (12-78); Albumin, Blood 2.0 g/dL (3.4-5.0); Albumin/Globulin Ratio 0.4 (0.8-1.8); Anion Gap 8.0 mmol/L (3-11); Aspartate Aminotrans (AST/SGOT 25.0 U/L (12-37); Bilirubin, Total 0.3 mg/dL (0.1-1.0); Blood Urea Nitrogen 14.0 mg/dL (8-24); CO2, Blood 26.0 mmol/L (21-32); Calcium, Blood 8.2 mg/dL (8.5-10.1); Chloride, Blood 108.0 mmol/L (98-108); Creatinine, Blood 1.49 mg/dL (0.60-1.20); Globulin, Blood 4.5 g/dL (2.2-4.0); Glucose, Blood 82.0 mg/dL (70-99); Potassium, Blood 3.7 mmol/L (3.5-5.5); Sodium, Blood 138.0 mmol/L (136-145); Total Protein, Blood 6.5 g/dL (6.4-8.2)
[2025-05-24 07:49] VITALS: BP 156/65
[2025-05-24] MEDS ORDERED: CefTRIAXone Sodium 1,000 MG in NS 100 ML IV SCH (12:00)
[2025-05-24] MEDS ORDERED: MetroNIDAZOLE 500MG/NS 100 ml 100 ML IV SCH (16:00)
[2025-05-24 16:45] VITALS: BP 146/84
--- NOTE | 2025-05-24 17:23 | NUR ---
End of shift summary: Patient is alert and oriented x3; impulsive and will not utilize call light appropriately; has been pleasant and cooperative with all care today. Patient to have Colonoscopy f/u outpatient recommended by surgery d/t not being compliant with bowel prep to complete while in hospital. Patient denies SOB, CP or pressure, N/V/D or pain today. ALl medications administered per EMAR. Plan to discharge Tuesday back to [place] if can be arranged. Call light within reach, bed in lowest position. Will continue to monitor until next shift nurse arrives and report is given.
[2025-05-24 21:05] VITALS: BP 156/82
[2025-05-25 03:36] VITALS: BP 161/83
--- NOTE | 2025-05-25 05:20 | NUR ---
NURSE PRACTITIONER SUMMARY PT A&OX3, VSS, EXCEPT HTN. ABLE TO MAKE NEEDS KNOWN WELL, ALTHOUGH DOES NOT USE CALL LIGHT AND YELLS INTO THE HALLWAY INSTEAD. HAS BEEN ASLEEP FOR MOST OF THE NIGHT. CHEST RISE/RESPIRATIONS NOTED. UP INTERMITTENTLY TO SIT AT EDGE OF BED OR USE BSC. PT REMAINS IMPULSIVE AND NOT CALLING FOR ASSISTANCE WHEN GETTING UP DESPITE EDUCATION FROM AUTHOR AND SIGNAL TESTER. DRESSINGS AND WOUND CARE PERFORMED PER ORDERS. DRESSINGS REMAIN CDI. BED RAILS UP X 3, BED IN LOWEST POSITION, BED WHEELS LOCKED, BED ALARM ON, PERSONAL BELONGINGS AND CALL LIGHT WITHIN REACH FOR SAFETY.
[2025-05-25 05:37] LABS: Hematocrit 26.8 % (37.0-53.0); Hemoglobin 8.7 g/dL (13.5-17.5); Mean Corpuscular HGB Conc 32.5 g/dL (31.5-36.5); Mean Corpuscular Volume 87 fL (80-100); NRBC ABSOLUTE 0.00 K/mm3 (0.00-0.02); NRBC Auto 0.0 /100 WBC (0.0-0.2); Platelet Count 429 K/mm3 (150-400); RDW Coefficient Variation 16.0 % (11.7-14.2); RDW Standard Deviation 49.5 fL (35.1-46.3)
[2025-05-25 08:16] VITALS: BP 157/70
[2025-05-25 15:33] VITALS: BP 155/68
[2025-05-25 19:41] VITALS: BP 149/77
--- NOTE | 2025-05-25 19:44 | NUR ---
End of shift summary: Patient is alert and oriented x3 with mild forgetfulness at times. Patient more drowsy today and just wanted to sleep; was cooperative with medications, but refused wound care x3 today. Patient denied SOB, CP or pressure, N/V/D or pain today. Up to bathroom this am and full bed change completed d/t incontinent episode. Patient with decreased appetite today and encouraged to call for snack if needed. All medications administered per EMAR. patient reminded and encouraged to use call light for assistance; call light within reach and bed in lowest position. Report given to night nurse.
[2025-05-26 05:03] VITALS: BP 163/88
--- NOTE | 2025-05-26 05:47 | NUR ---
SKI LIFT OPERATOR SUMMARY PT A&OX3, VSS, EXCEPT HTN. ABLE TO MAKE NEEDS KNOWN EFFECTIVELY. HAS BEEN ASLEEP FOR MOST OF THE SHIFT. CHEST RISE/RESPIRATIONS NOTED. UP INTERMITTENTLY TO USE BSC OR SIT AT EDGE OF BED. PT REF WOUND CARE THIS SHIFT, DENYING NEED FOR WOUND CARE DESPITE EDUCATION. DRESSINGS DRY, BUT SLIGHTLY SOILED AND STARTING TO FALL APART. BED RAILS UP X 2, BED IN LOWEST POSITION, BED WHEELS LOCKED, PERSONAL BELONGINGS AND CALL LIGHT WITHIN REACH FOR SAFETY.
[2025-05-26 08:14] VITALS: BP 149/83
--- NOTE | 2025-05-26 14:06 | NUR ---
WOUND CARE COMPLETED ORDERED, PT TOLORATED WELL, NO COMPLAINTS.
[2025-05-26 16:12] VITALS: BP 139/76
--- NOTE | 2025-05-26 17:20 | NUR ---
NO ACUTE CHANGES THIS SHIFT. WOUND CARE COMPLETED THIS SHIFT. IV ANTIBIOTICS CONTINUED. SBA TO BSC WITH INCONT EPISODES. PT DENIES PAIN AND HAS NO CONCERNS. PERSONAL ITEMS AND CALL LIGHT IN REACH. PT CALLS APPROPRIATELY FOR ASSISTANCE.
[2025-05-26 19:16] VITALS: BP 154/87
[2025-05-27 03:39] VITALS: BP 152/77
--- NOTE | 2025-05-27 05:02 | NUR ---
SHIFT SUMMARY PATIENT ADMITTED FOR SEPSIS DUE TO CELLULITIS. ALERT AND ORIENTED X3. NO ACUTE OVERNIGHT CHANGES. BED IN LOWEST POSITION FOR SAFETY. CALL LIGTH WITHIN REACH.
[2025-05-27 07:48] VITALS: BP 156/89
--- NOTE | 2025-05-27 09:00 | NUR ---
pt laying in bed on his side, is a bit gruff, but is cooperative with care, follows commadns well, denies pain at this time, lungs are clear dim in bases, resp even and unlabored, on r/a, no cough noted, hrr, no edema noted, ppp+1, cap refill<3 sec, vs stable, afebrile, piv to lac site is clear and patent but wont infuse if he has his arm bent, btx4, abd flat soft nontender, incont of urine in bed, refusing to have pullup in place, skin c/w/d, maew, gets himself to chair without diff, lis, call light in reach.
[2025-05-27 16:14] VITALS: BP 143/73
--- NOTE | 2025-05-27 16:46 | NUR ---
Changed dressing to pt right foot, replaced xeroform and wrapped with kurlex, pt report it feels better, no further needs at this time. call light in reach.
--- NOTE | 2025-05-27 17:55 | NUR ---
pt continuously lays on left side, has been pleasant and cooperative through out the shift, dressing was changed, pt tolerated well, he has been incont at times, no acute changes this shift, call light in reach.
[2025-05-27 19:48] VITALS: BP 148/68
[2025-05-28 04:10] VITALS: BP 138/72
--- NOTE | 2025-05-28 06:04 | NUR ---
SHIFT SUMMARY APPEARS A&OX4 BUT GETS CONFUSED AT TIMES. USES URINAL. LEFT IV REMAINS PATENT AND PT TOLERATED INFUSION WELL. PT DID HAVE SOME PAIN IN RIGHT FOOT/WOUND AREA. MEDICATED PER EMAR AND PT VOICED THAT HELPED A LOT TO MANAGE HIS PAIN. PT IS WEARING AN ATTENDS. HE HAS SORES TO HIS COCCYX BUT IS RESISTANT/REFUSING CARE TO THIS AREA. NO DRAINAGE NOTED AND SCABS PRESENT. KENNETH. CURRENTLY PT IS SLEEPING IN BED AT LOWEST POSITION WITH CALL LIGHT WITHIN REACH.
[2025-05-28 07:22] VITALS: BP 161/83
[2025-05-28] MEDS ORDERED: JUVEN PACKET1 EAC3 PO (14:06)
[2025-05-28] MEDS ORDERED: AMLO10 PO (14:06)
[2025-05-28] MEDS ORDERED: LOSA50 (14:07)
[2025-05-28] MEDS ORDERED: FOLI1 PO (14:07)
[2025-05-28] MEDS ORDERED: CEFP200 PO (14:07)
[2025-05-28] MEDS ORDERED: METR500 (14:08)
[2025-05-28] MEDS ORDERED: METO25ER PO (14:08)
[2025-05-28] MEDS ORDERED: PANT40 PO (14:09)
[2025-05-28] MEDS ORDERED: VISBIOME 112.51 EACH (14:09)
== END 2025-05-28 15:37 | disposition home or self-care (01) | DRG 871 ==
LOC: ER 11:24 → MEDS 15:16 → ENPENDDIS 05-28 11:51 → MEDS 05-28 15:37
PROVIDERS: Internal Medicine; Nurse Practitioner Acute Care; Student in an Organized Health Care Education/Training Program; ADMIT Family Medicine
PROC: 3E03329 Introduction of Other Anti-infective into Peripheral Vein, Percutaneous Approach (ICD-10-PCS; 2025-05-12)
PROC: 30233N1 Transfusion of Nonautologous Red Blood Cells into Peripheral Vein, Percutaneous Approach (ICD-10-PCS; principal; 2025-05-18)
PROC: 0DB78ZX Excision of Stomach, Pylorus, Via Natural or Artificial Opening Endoscopic, Diagnostic (ICD-10-PCS; 2025-05-19)
PROC: 0DB48ZX Excision of Esophagogastric Junction, Via Natural or Artificial Opening Endoscopic, Diagnostic (ICD-10-PCS; 2025-05-19)
DX: A41.01 Sepsis due to Methicillin susceptible Staphylococcus aureus (principal); K25.4 Chronic or unspecified gastric ulcer with hemorrhage; K29.71 Gastritis, unspecified, with bleeding; Z59.00 Homelessness unspecified; N17.9 Acute kidney failure, unspecified; L03.115 Cellulitis of right lower limb; L03.116 Cellulitis of left lower limb; D62 Acute posthemorrhagic anemia; Z66 Do not resuscitate; R65.20 Severe sepsis without septic shock; E87.6 Hypokalemia; E88.09 Other disorders of plasma-protein metabolism, not elsewhere classified; B87.1 Wound myiasis; E11.621 Type 2 diabetes mellitus with foot ulcer; R68.0 Hypothermia, not associated with low environmental temperature; L97.529 Non-pressure chronic ulcer of other part of left foot with unspecified severity; L97.519 Non-pressure chronic ulcer of other part of right foot with unspecified severity; E66.9 Obesity, unspecified; M70.32 Other bursitis of elbow, left elbow; E11.22 Type 2 diabetes mellitus with diabetic chronic kidney disease; I12.9 Hypertensive chronic kidney disease with stage 1 through stage 4 chronic kidney disease, or unspecified chronic kidney disease; E11.42 Type 2 diabetes mellitus with diabetic polyneuropathy; K44.9 Diaphragmatic hernia without obstruction or gangrene; D50.9 Iron deficiency anemia, unspecified; D52.9 Folate deficiency anemia, unspecified; N18.31 Chronic kidney disease, stage 3a; Z88.1 Allergy status to other antibiotic agents; Z88.8 Allergy status to other drugs, medicaments and biological substances; Z68.24 Body mass index [BMI] 24.0-24.9, adult; Z23 Encounter for immunization; Z79.84 Long term (current) use of oral hypoglycemic drugs
CPT/HCPCS: 36415; 71046; 73630; 74177; 80048; 80053; 80069; 80202; 82270; 82550; 82565; 82607; 82728; 82746; 82947; 83036; 83540; 83550; 83605; 83735; 84100; 85014; 85018; 85025; 85027; 86850; 86900; 86901; 86923; 87040; 87077; 87081; 88305; 88342; 90471; 90715; 93005; 93010; 93922; 96360; 97110; 97162; 97165; 97530; 97535; 99285-25; A9270; J0696; J1171; J1650; J1815; J2185; J2470; J2704; J2916; J3373; J7030; J7040; J7050; J7120; P9016; Q9967

== ENCOUNTER 2025-05-29 01:32 | Day surgery (SDC) | payer OTHER ==
[~2025-05-29 01:32] MED LIST: AMLO10 PO; CEFP200 PO; FOLI1 PO; JUVEN PACKET1 EAC3 PO; LOSA50; METO25ER PO; METR500; PANT40 PO; VISBIOME 112.51 EACH
[2025-05-29] MEDS ORDERED: Lidocaine HCl 4% Cream 5 GM ONE (07:42)
== END 2025-05-29 23:00 | disposition home or self-care (01) ==
LOC: WOUND 01:32
DX: E11.621 Type 2 diabetes mellitus with foot ulcer (principal); L97.512 Non-pressure chronic ulcer of other part of right foot with fat layer exposed; E11.40 Type 2 diabetes mellitus with diabetic neuropathy, unspecified; Z88.1 Allergy status to other antibiotic agents
CPT/HCPCS: A9270; G0463

== ENCOUNTER 2025-06-13 00:19 | Day surgery (SDC) | payer OTHER ==
[~2025-06-13 00:19] MED LIST changes: -LOSA50; +LOSA50 PO; -VISBIOME 112.51 EACH; +VISBIOME 112.51 EACH PO
[2025-06-13] MEDS ORDERED: Lidocaine HCl 4% Cream 5 GM ONE (08:20)
== END 2025-06-13 23:00 | disposition home or self-care (01) ==
LOC: WOUND 00:19
DX: E11.621 Type 2 diabetes mellitus with foot ulcer (principal); L97.512 Non-pressure chronic ulcer of other part of right foot with fat layer exposed; E11.40 Type 2 diabetes mellitus with diabetic neuropathy, unspecified; L03.115 Cellulitis of right lower limb
CPT/HCPCS: A9270

== ENCOUNTER 2025-06-15 15:52 | Inpatient (IN) | payer OTHER ==
[~2025-06-15] VITALS: Ht 180.3 cm; Wt 74.8 kg
[2025-06-15 16:16] LABS: BASOPHILS ABSOLUTE AUTO 0.09 K/mm3 (0.00-0.23); BASOPHILS PERCENT AUTO 1 % (0-2); EOSINOPHILS ABSOLUTE AUTO 0.23 K/mm3 (0.00-0.68); EOSINOPHILS PERCENT AUTO 2 % (0-6); Hematocrit 34.1 % (37.0-53.0); Hemoglobin 11.0 g/dL (13.5-17.5); IMMATURE GRAN ABSOLUTE AUTO 0.07 K/mm3 (0.00-0.10); IMMATURE GRAN PERCENT AUTO 1 % (0-1); LYMPHOCYTES ABSOLUTE AUTO 1.23 K/mm3 (0.84-5.20); LYMPHOCYTES PERCENT AUTO 8 % (21-46); MONOCYTES ABSOLUTE AUTO 1.56 K/mm3 (0.16-1.47); MONOCYTES PERCENT AUTO 10 % (4-13); Mean Corpuscular HGB Conc 32.3 g/dL (31.5-36.5); Mean Corpuscular Volume 85 fL (80-100); NEUTROPHILS ABSOLUTE AUTO 11.89 K/mm3 (1.96-9.15); NEUTROPHILS PERCENT AUTO 79 % (41-73); NRBC ABSOLUTE 0.00 K/mm3 (0.00-0.02); NRBC Auto 0.0 /100 WBC (0.0-0.2); Platelet Count 273 K/mm3 (150-400); RDW Coefficient Variation 14.4 % (11.7-14.2); RDW Standard Deviation 44.9 fL (35.1-46.3)
[2025-06-15 16:35] LABS: Alanine Aminotransfer (ALT/SGP 21.0 U/L (12-78); Albumin, Blood 3.0 g/dL (3.4-5.0); Albumin/Globulin Ratio 0.7 (0.8-1.8); Anion Gap 7.0 mmol/L (3-11); Aspartate Aminotrans (AST/SGOT 30.0 U/L (12-37); Bilirubin, Total 0.5 mg/dL (0.1-1.0); Blood Urea Nitrogen 23.0 mg/dL (8-24); CO2, Blood 29.0 mmol/L (21-32); Calcium, Blood 8.6 mg/dL (8.5-10.1); Chloride, Blood 101.0 mmol/L (98-108); Creatinine, Blood 1.82 mg/dL (0.60-1.20); Globulin, Blood 4.6 g/dL (2.2-4.0); Glucose, Blood 138.0 mg/dL (70-99); Potassium, Blood 4.1 mmol/L (3.5-5.5); Sodium, Blood 133.0 mmol/L (136-145); Total Protein, Blood 7.6 g/dL (6.4-8.2)
[2025-06-15] MEDS ORDERED: NS 1,000 ML IV SCH ×3 (17:00→20:05)
[2025-06-15] MEDS ORDERED: Cefepime HCl 1,000 MG in NS 100 ML IV ONE (18:05)
[2025-06-15] MEDS ORDERED: Vancomycin (Pharmacy Consult) IV PRN (18:10)
[2025-06-15] MEDS ORDERED: FLU VACC TS2025-26(6MOS UP)/PF 45 MCG/0.5 ML SYRINGE IM SCH (20:05)
[2025-06-15] MEDS ORDERED: Labetalol HCL 5 MG/ML 4ML Injection (Single Dose) IV PRN (20:10)
[2025-06-15] MEDS ORDERED: Ondansetron HCl 2 MG / ML 2ML Vial IV PRN (20:10)
[2025-06-15] MEDS ORDERED: Lactobacil 2-S.Thermo-Bifido 1 1 Cap PO SCH (21:00)
[2025-06-15 21:30] LABS: Influenza A, PCR NEGATIVE (NEGATIVE); Influenza B, PCR NEGATIVE (NEGATIVE); Resp Syncytial Virus, PCR NEGATIVE (NEGATIVE); SARS-Cov-2 (COVID-19) PCR, MMC NEGATIVE (NEGATIVE)
[2025-06-15 21:54] VITALS: BP 156/88
[2025-06-16] MEDS ORDERED: CefTRIAXone Sodium 1,000 MG in NS 100 ML IV SCH
[2025-06-16 03:41] VITALS: BP 158/110
[2025-06-16 07:32] VITALS: BP 182/93
--- NOTE | 2025-06-16 07:32 | NUR ---
ASSUMED CARE AT 2129 FROM ER, PT ARRIVED SOAKED IN URINE AND SLIGHTLY CONFUSED, INITIALLY BELIEVED THAT HE WAS IN BENAVIDES BUT LATER ORIENTED TO PLACE. PT HAS SCATTERED SCABS TO LOWER EXTREMETIES FROM DIABETIC ULCERS WHICH APPEAR TO BE HEALING IN VARIED STAGES. DOESN'T COMPLAIN OF PAIN. PT ON RA WITH NO TELE. PT REMOVED HIS OWN IV 2X, ONCE AT THE HUB OF THE IV AND ONCE COMPLETELY FROM HIS ARM. PT STATES HE IS UNAWARE OF HOW IT HAPPENED. SEVERAL ATTEMPTS MADE AT STICKS AND NONE SUCCESSFUL, PASSED TO DAYSHIFT. PT SOILED BED SEVERAL TIMES THROUGHOUT THE NIGHT STATING THAT HE DOES NOT ALWAYS KNOW WHEN HE HAS TO GO. PT NOT OVERTLY UNPLEASANT BUT SEEMS TO INTERFERE WITH CARE, WHETHER OR NOT IT IS INTENTIONAL
[2025-06-16] MEDS ORDERED: Enoxaparin 30 MG/0.3 ML SYR SC SCH (09:00)
[2025-06-16 10:18] LABS: BASOPHILS ABSOLUTE AUTO 0.08 K/mm3 (0.00-0.23); BASOPHILS PERCENT AUTO 1 % (0-2); EOSINOPHILS ABSOLUTE AUTO 0.02 K/mm3 (0.00-0.68); EOSINOPHILS PERCENT AUTO 0 % (0-6); Hematocrit 30.6 % (37.0-53.0); Hemoglobin 9.9 g/dL (13.5-17.5); IMMATURE GRAN ABSOLUTE AUTO 0.11 K/mm3 (0.00-0.10); IMMATURE GRAN PERCENT AUTO 1 % (0-1); LYMPHOCYTES ABSOLUTE AUTO 1.05 K/mm3 (0.84-5.20); LYMPHOCYTES PERCENT AUTO 12 % (21-46); MONOCYTES ABSOLUTE AUTO 0.80 K/mm3 (0.16-1.47); MONOCYTES PERCENT AUTO 9 % (4-13); Mean Corpuscular HGB Conc 32.4 g/dL (31.5-36.5); Mean Corpuscular Volume 85 fL (80-100); NEUTROPHILS ABSOLUTE AUTO 6.46 K/mm3 (1.96-9.15); NEUTROPHILS PERCENT AUTO 76 % (41-73); NRBC ABSOLUTE 0.00 K/mm3 (0.00-0.02); NRBC Auto 0.0 /100 WBC (0.0-0.2); Platelet Count 205 K/mm3 (150-400); RDW Coefficient Variation 14.3 % (11.7-14.2); RDW Standard Deviation 44.3 fL (35.1-46.3)
[2025-06-16 10:51] LABS: Magnesium, Blood 1.6 mg/dL (1.6-2.4)
[2025-06-16 10:52] LABS: Alanine Aminotransfer (ALT/SGP 16.0 U/L (12-78); Albumin, Blood 2.6 g/dL (3.4-5.0); Albumin/Globulin Ratio 0.6 (0.8-1.8); Anion Gap 10.0 mmol/L (3-11); Aspartate Aminotrans (AST/SGOT 19.0 U/L (12-37); Bilirubin, Total 0.3 mg/dL (0.1-1.0); Blood Urea Nitrogen 19.0 mg/dL (8-24); CO2, Blood 26.0 mmol/L (21-32); Calcium, Blood 8.2 mg/dL (8.5-10.1); Chloride, Blood 104.0 mmol/L (98-108); Creatinine, Blood 1.7 mg/dL (0.60-1.20); Globulin, Blood 4.0 g/dL (2.2-4.0); Glucose, Blood 145.0 mg/dL (70-99); Potassium, Blood 3.5 mmol/L (3.5-5.5); Sodium, Blood 136.0 mmol/L (136-145); Total Protein, Blood 6.6 g/dL (6.4-8.2)
[2025-06-16 15:40] VITALS: BP 169/97
--- NOTE | 2025-06-16 18:23 | NUR ---
SHIFT SUMMARY; PT A/OX4 AND NO AMBULATION OF THE PATIENT OBSERVED DURING SHIFT. AT BEDSIDE THIS AM, SEE PROGRESS NOTES. PT DENIES PAIN TODAY IN HIS BLE. PICTURES OF WOUNDS TAKEN AND PLACED IN CHART. PT MEDICATED PER EMAR. PT HYPERTENSIVE THIS SHIFT EVEN POST BP MEDICATION. ADMINISTRATION. DR. REGALADO CALLED AND NOTIFIED. NEW ORDERS FOR HTN CONTROL IN EMAR. PUDDLE OF LIQUID OBSERVED ON FLOOR; THIS RN WIPED UP. PT OBSERVED URINATING ON THE FLOOR SHORTLY AFTER. PT ASSISTED UP TO THE SHOWER DUE TO SOILED LINEN AND PT COVERED IN URINE. CONDOM CATH APPLIED TO PATIENT AND REPOSITIONED IN BED. BED IN LOWEST POSITION AND CALL LIGHT WITHIN REACH.
[2025-06-16 19:56] VITALS: BP 149/84
[2025-06-16 20:27] LABS: Source, Urine Clean Catch
[2025-06-16 20:40] LABS: Bilirubin, Urine Neg (Neg); Glucose Qualitative, Urine 2+ (Neg); Ketones, Urine Neg (Neg); Leukocyte Esterase, Urine Neg (Neg); Protein, Urine 2+ (Neg); Specific Gravity, Urine 1.010 (1.003-1.022); Urobilinogen, Urine NORM (Normal)
[2025-06-16 20:57] LABS: Color, Urine Pale Yellow (P-Yellow)
[2025-06-16 20:58] LABS: White Blood Cells, Urine 0-2 /hpf (0-5)
[2025-06-17] VITALS (7 sets, daily range): BP systolic 127–143; BP diastolic 56–104
[2025-06-17 05:08] LABS: BASOPHILS ABSOLUTE AUTO 0.06 K/mm3 (0.00-0.23); BASOPHILS PERCENT AUTO 1 % (0-2); EOSINOPHILS ABSOLUTE AUTO 0.22 K/mm3 (0.00-0.68); EOSINOPHILS PERCENT AUTO 3 % (0-6); Hematocrit 29.5 % (37.0-53.0); Hemoglobin 9.4 g/dL (13.5-17.5); IMMATURE GRAN ABSOLUTE AUTO 0.04 K/mm3 (0.00-0.10); IMMATURE GRAN PERCENT AUTO 1 % (0-1); LYMPHOCYTES ABSOLUTE AUTO 2.48 K/mm3 (0.84-5.20); LYMPHOCYTES PERCENT AUTO 29 % (21-46); MONOCYTES ABSOLUTE AUTO 1.48 K/mm3 (0.16-1.47); MONOCYTES PERCENT AUTO 17 % (4-13); Mean Corpuscular HGB Conc 31.9 g/dL (31.5-36.5); Mean Corpuscular Volume 85 fL (80-100); NEUTROPHILS ABSOLUTE AUTO 4.38 K/mm3 (1.96-9.15); NEUTROPHILS PERCENT AUTO 51 % (41-73); NRBC ABSOLUTE 0.00 K/mm3 (0.00-0.02); NRBC Auto 0.0 /100 WBC (0.0-0.2); Platelet Count 202 K/mm3 (150-400); RDW Coefficient Variation 14.2 % (11.7-14.2); RDW Standard Deviation 44.2 fL (35.1-46.3)
[2025-06-17 05:30] LABS: Ferritin, Serum 555.0 ng/mL (26-388); Total Iron Binding Capacity 178.0 ug/dL (250-450)
[2025-06-17 05:31] LABS: Anion Gap 9.0 mmol/L (3-11); Blood Urea Nitrogen 17.0 mg/dL (8-24); CO2, Blood 25.0 mmol/L (21-32); Calcium, Blood 8.1 mg/dL (8.5-10.1); Chloride, Blood 106.0 mmol/L (98-108); Creatinine, Blood 1.77 mg/dL (0.60-1.20); Glucose, Blood 104.0 mg/dL (70-99); Potassium, Blood 3.2 mmol/L (3.5-5.5); Sodium, Blood 137.0 mmol/L (136-145)
--- NOTE | 2025-06-17 06:58 | NUR ---
PT BEHAVIOR MUCH IMPROVED THIS EVENING, NO INTERFERENCE WITH CARE, OBTAINED ADEQUATE REST. FEVER NOTED WITH 1900 VITALS (101.5) PT DID NOT FEEL THOUGH HE HAD A FEVER, 1X DOSE OF TYLENOL GIVEN AND FEVER RESOLVED. NO FURTHER CHANGES NOTED.
[2025-06-17] MEDS ORDERED: Iron Dextran 50 MG / ML 2ML Vial IV ONE (08:45)
[2025-06-17] MEDS ORDERED: Iron Dextran 975 MG in NS 250 ML IV ONE (10:30)
--- NOTE | 2025-06-17 19:22 | NUR ---
SHIFT SUMMARY; PT A/OX4 W/ INTERMITTENT CONFUSION THAT IS REDIRECTABLE. PT IS ONE PERSON ASSIST WITH AMBULATION. DR. REGALADO AT BEDSIDE THIS AM; NEW MEDICATIONS ENTERED. PLEASE SEE NOTE AND EMAR. PT MEDICATED PER EMAR. PHYSICAL THERAPY AND CARE MANAGEMENT AT BEDSIDE THIS SHIFT WELL. SEE ASSESSMENT NOTES. BED IN LOWEST POSITION AND CALL LIGHT WITHIN REACH.
[2025-06-18 03:22] VITALS: BP 141/76
[2025-06-18 05:19] LABS: BASOPHILS ABSOLUTE AUTO 0.08 K/mm3 (0.00-0.23); BASOPHILS PERCENT AUTO 1 % (0-2); EOSINOPHILS ABSOLUTE AUTO 0.75 K/mm3 (0.00-0.68); EOSINOPHILS PERCENT AUTO 8 % (0-6); Hematocrit 33.4 % (37.0-53.0); Hemoglobin 10.8 g/dL (13.5-17.5); IMMATURE GRAN ABSOLUTE AUTO 0.04 K/mm3 (0.00-0.10); IMMATURE GRAN PERCENT AUTO 0 % (0-1); LYMPHOCYTES ABSOLUTE AUTO 2.80 K/mm3 (0.84-5.20); LYMPHOCYTES PERCENT AUTO 29 % (21-46); MONOCYTES ABSOLUTE AUTO 1.14 K/mm3 (0.16-1.47); MONOCYTES PERCENT AUTO 12 % (4-13); Mean Corpuscular HGB Conc 32.3 g/dL (31.5-36.5); Mean Corpuscular Volume 85 fL (80-100); NEUTROPHILS ABSOLUTE AUTO 4.99 K/mm3 (1.96-9.15); NEUTROPHILS PERCENT AUTO 51 % (41-73); NRBC ABSOLUTE 0.00 K/mm3 (0.00-0.02); NRBC Auto 0.0 /100 WBC (0.0-0.2); Platelet Count 228 K/mm3 (150-400); RDW Coefficient Variation 14.1 % (11.7-14.2); RDW Standard Deviation 43.7 fL (35.1-46.3)
[2025-06-18 05:42] LABS: Anion Gap 7.0 mmol/L (3-11); Blood Urea Nitrogen 17.0 mg/dL (8-24); CO2, Blood 28.0 mmol/L (21-32); Calcium, Blood 8.4 mg/dL (8.5-10.1); Chloride, Blood 106.0 mmol/L (98-108); Creatinine, Blood 1.53 mg/dL (0.60-1.20); Glucose, Blood 108.0 mg/dL (70-99); Potassium, Blood 3.6 mmol/L (3.5-5.5); Sodium, Blood 137.0 mmol/L (136-145)
[2025-06-18 07:29] VITALS: BP 154/89
--- NOTE | 2025-06-18 07:44 | NUR ---
A/Ox4, VSS ON RA. NO ACUTE CHANGES OVERNIGHT. PT UP WITH SBA. DENIES PAIN, NAUSEA, SOB. CALL LIGHT IN REACH, NO FURTHER NEEDS AT THIS TIME.
[2025-06-18] MEDS ORDERED: FOLI1 PO (17:30)
--- NOTE | 2025-06-18 18:22 | NUR ---
PT ALERT AND ORIENTED, STANDY 1P/INDEPENDENT IN ROOM, CONTINUE IV ABX, PLAN FOR DC TOMMOROW TO [facility]. TOLERATING PO INTAKE AND VOIDING TO TOILET, DENIES PAIN OF SOB-ON RA, CALL LIGHT IN REACH.
[2025-06-18 19:13] VITALS: BP 152/74
[2025-06-19 04:01] VITALS: BP 143/79
--- NOTE | 2025-06-19 04:03 | NUR ---
NO ACUTE CHANGES DURING SHIFT. PATIENT ALERT ADN ORIENTED X4, ABLE TO MAKE NEEDS KNOWN. PATIENT UP INDEPENDENTLY IN THE ROOM. IV ANTIBITIOCS GIVE-SEE EMAR. NO COMPLAINTS OF PAIN. BED IN LOW POSITION WITH WHEELS LOCKED. CALL LIGHT WITHIN REACH.
[2025-06-19 07:59] VITALS: BP 152/93
[2025-06-19] MEDS ORDERED: NS 250 ML IV PRN (11:00)
[2025-06-19] MEDS ORDERED: CATAPRES0.1 MG PO (12:57)
[2025-06-19] MEDS ORDERED: CEFU500T30 PO (12:58)
--- NOTE | 2025-06-19 14:32 | NUR ---
DISCHARGE- INSTRUCTIONS REVIEWED. IV REMOVED. PATIENT TAKEN TO AWAITING CAR VIA WHEELCHAIR.
[2025-06-20] MEDS ORDERED: Enoxaparin 40 MG/0.4 ML SYR SC SCH (09:00)
== END 2025-06-19 13:33 | disposition home or self-care (01) | DRG 871 ==
LOC: ER 15:52 → MEDS 20:03
PROVIDERS: Internal Medicine; Nurse Practitioner Acute Care; Student in an Organized Health Care Education/Training Program; ADMIT Internal Medicine
DX: A41.9 Sepsis, unspecified organism (principal); G92.8 Other toxic encephalopathy; J18.9 Pneumonia, unspecified organism; E87.1 Hypo-osmolality and hyponatremia; N17.9 Acute kidney failure, unspecified; D63.1 Anemia in chronic kidney disease; R65.20 Severe sepsis without septic shock; Y95 Nosocomial condition; N18.31 Chronic kidney disease, stage 3a; E11.22 Type 2 diabetes mellitus with diabetic chronic kidney disease; E11.621 Type 2 diabetes mellitus with foot ulcer; L97.519 Non-pressure chronic ulcer of other part of right foot with unspecified severity; E87.6 Hypokalemia; R45.1 Restlessness and agitation; D50.9 Iron deficiency anemia, unspecified; K21.9 Gastro-esophageal reflux disease without esophagitis; I12.9 Hypertensive chronic kidney disease with stage 1 through stage 4 chronic kidney disease, or unspecified chronic kidney disease; G31.84 Mild cognitive impairment of uncertain or unknown etiology; Z23 Encounter for immunization; Z87.11 Personal history of peptic ulcer disease; Z88.8 Allergy status to other drugs, medicaments and biological substances; Z79.899 Other long term (current) drug therapy; Z88.1 Allergy status to other antibiotic agents; Z87.19 Personal history of other diseases of the digestive system
CPT/HCPCS: 36415; 71046; 80048; 80053; 81001; 82728; 83540; 83550; 83605; 83735; 83880; 85025; 87040; 87086; 87637; 93005; 93010; 96365; 96367; 97110; 97116; 97161; 97530; 99285-25; A9270; J0456; J0692; J0696; J1650; J1750; J3373; J7030; J7040; J7050

== ENCOUNTER 2025-06-27 02:02 | Day surgery (SDC) | payer OTHER ==
[~2025-06-27 02:02] MED LIST changes: +CATAPRES0.1 MG PO; +CEFU500T30 PO
[2025-06-27] MEDS ORDERED: Lidocaine HCl 4% Cream 5 GM ONE (08:43)
== END 2025-06-27 23:00 | disposition home or self-care (01) ==
LOC: WOUND 02:02
DX: E11.621 Type 2 diabetes mellitus with foot ulcer (principal); L97.512 Non-pressure chronic ulcer of other part of right foot with fat layer exposed; E11.40 Type 2 diabetes mellitus with diabetic neuropathy, unspecified; L03.115 Cellulitis of right lower limb
CPT/HCPCS: A9270